=== PATIENT | female | born 1930 ===

== ENCOUNTER 2017-05-14 19:21 | Emergency (ER) | payer MEDICARE ==
[2017-05-14] MEDS ORDERED: NS 0.9% 1000 ML* 1,000 ML IV ONE (23:09)
[2017-05-14 23:40] LABS: Hematocrit 39 % (35-47); Hemoglobin 12.7 g/dl (12.0-16.0); Mean Corpuscular HGB Conc 33 g/dl (31-36); Mean Corpuscular Hemoglobin 33 pg (27-31); Mean Corpuscular Volume 100 fL (80-97); Mean Platelet Volume 8 um3 (7.4-10.4); Red Blood Count 3.86 10^6/ul (4.0-5.4); Red Cell Distribution Width 13 % (10.5-15); White Blood Count 14.4 10^3/ul (3.5-10.8)
--- NOTE | 2017-05-14 23:52 | ED ---
Anneliese Gandhi Edward, scribed for Rajinder Torres MD on 05/14/17 at 2302 . Abdominal Pain/Female - HPI Summary HPI Summary: 86 y/o female presents to ED c/o mid ABD pain starting at around 15:00 today. The pain was rated at 2/10 at triage. Patient still has ABD pain now. Associated sx: vomiting x 1, diarrhea x 3 since. Pt reports seeing bright red bleeding after last two bouts of diarrhea. Pt denies prior hx. Rectal bleeding noted by staff at [facility], per triage notes. - History of Current Complaint Chief Complaint: EDAbdPain Stated Complaint: DIARRHEA/RECTAL BLEEDING Hx Obtained From: Patient Onset/Duration: Sudden Onset, Lasting Hours Severity Initially: Mild Severity Currently: Mild Pain Intensity: 2 Pain Scale Used: 0-10 Numeric Location: Epigastric Associated Signs and Symptoms: Positive: Blood in Stool, Nausea, Vomiting, Diarrhea Allergies/Adverse Reactions: Allergies Allergy/AdvReac Type Severity Reaction Status Date / Time No Known Allergies Allergy Verified 05/14/17 20:07 PMH/Surg Hx/FS Hx/Imm Hx Previously Healthy: No Endocrine/Hematology History: Denies: Hx Diabetes Cardiovascular History: Denies: Hx Congestive Heart Failure, Hx Hypertension - Surgical History Surgery Procedure, Year, and Place: APPENDECTOMY Infectious Disease History: Denies: Traveled Outside the in Last 30 Days - Social History Occupation: Retired Lives: Assisted Living Alcohol Use: Occasionally Hx Substance Use: No Substance Use Type: Reports: None Hx Tobacco Use: No Smoking Status (MU): Never Smoked Tobacco Review of Systems Constitutional: Negative Eyes: Negative ENT: Negative Cardiovascular: Negative Respiratory: Negative Positive: Abdominal Pain, Vomiting, Diarrhea, Nausea, Other - Bright red blood in stool Genitourinary: Negative Musculoskeletal: Negative Skin: Negative Neurological: Negative Psychological: Normal All Other Systems Reviewed And Are Negative: Yes Physical Exam Triage Information Reviewed: Yes Vital Signs On Initial Exam: Initial Vitals Temp Pulse Resp BP Pulse Ox 97.4 F 78 16 94/65 97 05/14/17 20:00 05/14/17 20:00 05/14/17 20:00 05/14/17 20:00 05/14/17 20:00 Vital Signs Reviewed: Yes Appearance: Positive: No Pain Distress, Thin Skin: Positive: Warm Head/Face: Positive: Normal Head/Face Inspection Eyes: Positive: EDILIA ENT: Positive: Hearing grossly normal Neck: Positive: Supple Respiratory/Lung Sounds: Positive: Clear to Auscultation, Breath Sounds Present Cardiovascular: Positive: RRR Abdomen Description: Positive: Nontender, No Organomegaly, Soft Bowel Sounds: Positive: Present Musculoskeletal: Positive: Strength/ROM Intact Neurological: Positive: Sensory/Motor Intact Psychiatric: Positive: Affect/Mood Appropriate Diagnostics - Vital Signs Vital Signs Temp Pulse Resp BP Pulse Ox 05/14/17 22:15 98.4 F 72 16 86/55 100 05/14/17 20:00 97.4 F 78 16 94/65 97 - Laboratory Lab Results: Lab Results 05/14/17 Range/Units 23:25 WBC 14.4 H (3.5-10.8) 10^3/ul RBC 3.86 L (4.0-5.4) 10^6/ul Hgb 12.7 (12.0-16.0) g/dl Hct 39 (35-47) % MCV 100 H (80-97) fL MCH 33 H (27-31) pg MCHC 33 (31-36) g/dl RDW 13 (10.5-15) % Plt Count 231 (150-450) 10^3/ul MPV 8 (7.4-10.4) um3 Neut % (Auto) 95.0 H (38-83) % Lymph % (Auto) 2.2 L (25-47) % [place] % (Auto) 2.7 (1-9) % Eos % (Auto) 0 (0-6) % Baso % (Auto) 0.1 (0-2) % Absolute Neuts (auto) 13.7 H (1.5-7.7) 10^3/ul Absolute Lymphs (auto) 0.3 L (1.0-4.8) 10^3/ul Absolute Monos (auto) 0.4 (0-0.8) 10^3/ul Absolute Eos (auto) 0 (0-0.6) 10^3/ul Absolute Basos (auto) 0 (0-0.2) 10^3/ul Absolute Nucleated RBC 0 10^3/ul Nucleated RBC % 0 Result Diagrams: 05/14/17 23:25 05/14/17 23:25 Lab Statement: Any lab studies that have been ordered have been reviewed, and results considered in the medical decision making process. - CT ABD/PEL CT CT Interpretation: No Acute Changes - Thickened descending and sigmoid colon with trace fat stranding/fluid in left paracolic space, compatible with colitis. At least one diverticulum colon. No bowel obstruction or free air. CT Interpretation Completed By: Radiologist Re-Evaluation - Re-Evaluation 1 Re-Evaluation Time: 00:14 - Discussed lab results will tx for uti 2 Re-Evaluation Time: 03:13 - Discussed CT results no further bleeding Abdominal Pain Fem Course/Dx - Course Course Of Treatment: 86 y/o female presents to ED c/o mid ABD pain starting at around 15:00 today. The pain was rated at 2/10 at triage. Patient still has ABD pain now. Associated sx: vomiting x 1, diarrhea x 3 since. Pt reports seeing bright red bleeding after last two bouts of diarrhea. Pt denies prior hx. Rectal bleeding noted by staff at [facility], per triage notes. ABD/PEL CT w/ CONTRAST SHOWS Thickened descending and sigmoid colon with trace fat stranding/ fluid in left paracolic space, compatible with colitis. At least one diverticulum colon. No bowel obstruction or free air. Pt will be d/c home with f /u with GI. - Diagnoses Provider Diagnoses: Diarrhea, UTI (urinary tract infection) Discharge - Discharge Plan Condition: Stable Disposition: HOME Prescriptions: Sulfamethox/Trimethoprim DS* [Bactrim DS 800/160 TAB*] 1 tab PO BID #14 tab Patient Education Materials: Acute Diarrhea (ED) Referrals: Ewdard Stone MD [Medical Doctor] - 3 Days (Please f/u in 2-3 days) The documentation as recorded by the Anneliese minor Edward accurately reflects the service I personally performed and the decisions made by , Rajinder Torres MD.
[2017-05-14 23:56] LABS: Albumin 4.2 g/dL (3.2-5.2); BUN/Creatinine Ratio 19.6 (8-20); C Reactive Protein 11.83 mg/L (< 5.00); Calcium 9.3 mg/dL (8.6-10.3); EGFR Non-African American 45.9 (>60); Globulin 3.1 g/dL (2-4); Magnesium 2.2 mg/dL (1.9-2.7); Potassium 3.8 mmol/L (3.5-5.0); Total Bilirubin 0.7 mg/dL (0.2-1.0); Total Protein 7.3 g/dL (6.4-8.9)
[2017-05-15] MEDS ORDERED: Iohexol 300* (CONTRAST) 10 ML SDV IV ONE (01:29)
[2017-05-15 02:19] LABS: Urine Bacteria 3+ (Absent); Urine Bilirubin Negative (Negative); Urine Glucose Negative (Negative); Urine Nitrite Positive (Negative)
[2017-05-15 04:01] VITALS: BP 98/56
[2017-05-15] MEDS ORDERED: Sulfamethox/Trimethoprim DS 800/160* TAB PO ONE (04:07)
--- NOTE | 2017-05-15 08:13 | RAD ---
INDICATION: Lower abdominal pain. Vomiting, diarrhea, bright red rectal bleeding. COMPARISON: September 13, [address] TECHNIQUE: Multidetector CT images were obtained from the lung bases to the ischial tuberosities with 51 mL Visipaque 320 IV and oral contrast. Multiplanar reformation. REPORT: Chronic pleural-parenchymal scarring with bronchiectasis at the inferior lingula. Minimal bilateral dependent subsegmental atelectasis. Mild cardiomegaly. Negative for pleural or pericardial effusions. Decreased density of the liver consistent with fatty infiltration. 0.9 cm simple cyst dome of the liver. No CT abnormality of the partially distended gallbladder. No CT abnormality of the pancreas or spleen. Negative for CT abnormality of the upper GI or small bowel. The appendix is not definitively visualized. Negative for inflammatory change at the RIGHT lower quadrant/region of the cecum. Enteric contrast extends to the hepatic flexure of the colon. There is suggestion of mild mural thickening of the colon at the descending segment and proximal sigmoid with only minimal perienteric inflammatory change. There is sparing of the distal sigmoid colon and rectum. Negative for ascites or free air. Small fat-containing umbilical hernia without inflammatory change. Normal adrenal glands. Unremarkable kidneys with symmetric nephrograms and pyelograms. Unremarkable nondilated ureters and grossly unremarkable largely decompressed urinary bladder. Multiple retroperitoneal phleboliths noted. Unremarkable retroverted uterus and adnexal regions. Negative for lymphadenopathy. Mild atherosclerotic plaque of normal diameter abdominal aorta and iliac arteries. Normal opacification of the celiac axis, superior mesenteric artery, and inferior mesenteric artery. 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 Mild anterior column superior endplate osteoporotic compression fracture at L2 without gross change. Grade 1 degenerative anterolisthesis at L5-S1. Negative for suspicious focal osseous lesions. IMPRESSION: 1. Moderate length segment mural thickening of the descending and proximal sigmoid colon with distal sparing without resulting bowel obstruction. Consider infectious inflammatory colitis as well as possible ischemic bowel. 2. Negative for perienteric abscess or free air. 3. 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
== END 2017-05-15 04:30 | disposition home or self-care (01) ==
LOC: ED 19:21
DX: N39.0 Urinary tract infection, site not specified (principal); R19.7 Diarrhea, unspecified; K92.1 Melena; R11.2 Nausea with vomiting, unspecified
CPT/HCPCS: 36415; 74177; 80053; 81003; 81015; 83605; 83735; 85025; 86140; 87077; 87086; 87186; 96360; 99283; A9270-GY; Q9967